=== PATIENT | female | born 2000 | race Caucasian/White ===

== ENCOUNTER 2020-06-09 09:27 | Emergency (ER) | payer MEDICAID, SELFPAY ==
--- NOTE | 2020-06-09 09:33 | US_ITS ---
WS: [id number] OB ultrasound, 06/09/2020 Clinical Data: vag bleeding/ Comparison: None. Findings: There is a single intrauterine in a variable lie. presentation. The placenta is Anterior and grade 0. There is a normal amount of amnionic fluid. The f etal heart rate is 144 beats per minute. No placenta previa or abruptio was seen Measurements of growth and development: BPD: 3.39 cm 16 weeks 3 days HC: 12.95 cm 16 weeks 4 days AC: 10.73 cm 16 weeks 4 days FL: 2.08 cm 16 weeks 1 day The estimated weight is 157 g or approximately 6 ounces The estimated gestational age is 16 weeks 3 days with an BELEM of approximately 11/21/2020. [place] [place] [facility] [place] [id number] Impression: 1. Single intrauterine in a variable lie.. 2. Estimated gestational age 16 weeks 3 days with an BELEM of 11/21/2020. 3. heart rate 144 beats per minute.
[2020-06-09 09:40] VITALS: BP 131/75; PULSE 97; RESP 16; TEMP 37.2; O2SAT 98; BMI 21.2
[2020-06-09 09:54] LABS: Basophils % 0.1 %; Eosinophils % 0.4 %; Hematocrit 39.3 % (37.0-47.0); Hemoglobin 13.2 g/dL (11.5-15.3); Lymphocytes # 1.5 10^3/uL (1.5-6.5); Lymphocytes % 16.9 %; Mean Corpuscular HGB Conc 33.6 g/dL (30.0-36.0); Mean Corpuscular Volume 92.3 fL (81-99); Mean Platelet Volume 9.1 fL (7.4-10.4); Monocytes # 0.4 10^3/uL (0.2-0.9); Monocytes % 4.2 %; Neutrophils # 6.69 10^3/uL (1.8-8.0); Neutrophils % 78.2 %; Nucleated Red Blood Cells % 0 %; Platelet Count 227 10^3/cmm (130-400); Red Blood Count 4.26 10^6/uL (4.1-5.3); Red Cell Distribution Width 12.7 % (12.1-15.1); White Blood Count 8.6 10^3/uL (4.5-13.0)
--- NOTE | 2020-06-09 09:55 | US_ITS ---
WS: [id number] Limited abdomen ultrasound, 06/09/2020 Clinical Data: RUQ and RLE abdominal pain due to fall Comparison: None. Findings: No free fluid is seen in any of the 4 quadrants of the abdomen. The spleen appears to be intact with no intrasplenic masses or capsular abnormalities. No liver laceration is noted. No pericardial fluid is seen. There are no pleural effusions. The abdom inal aorta is normal. Both kidneys show no lacerations. US/US abdomen lmt trauma [id number] Impression: Negative limited abdomen ultrasound.
--- NOTE | 2020-06-09 09:58 | XR_ITS ---
WS: [id number] Right rib detail, 2 views, 06/09/2020 Clinical Data: rib pain s/p fall Comparison: None. Findings: No rib fractures are seen. There is no pneumothorax or subcutaneous emphysema. The adjacent right jersey g is unremarkable. The soft tissues of the right chest are normal. XR/XR ribs RT 2V* [id number] Impression: Negative right rib detail.
--- NOTE | 2020-06-09 09:59 | ED_ITS ---
HPI - General: Chief complaint: Vaginal Bleeding Stated complaint: 16 wks , spotting, coughing blood Time Seen by Provider: 06/09/20 09:29 History of Present Illness: HPI Narrative: 19-year-old female patient presents to the emergency department status post fall. She reports was going to the bathroom when she stood up, got lightheaded and fell. She reports hit the side of her abdomen/lower chest on the commode. She reports became nauseated, vomited, experienced vaginal bleeding; she is 16 weeks . She reports blood through a mini pad. Vital signs are stable upon exam. Denies for nausea at this time. States was at work at [employer] when symptoms occurred. She reports did not hit her head, she did not experience loss of consciousness. MD Complaint: abdominal pain and vaginal bleeding Onset (ago): minute(s) (30) Pain Consistency: intermittent Location: pelvis, abdomen and flank Severity: mild Severity scale (1-10): 4 Quality: Cramping and Aching Radiation: pelvis, abdomen and flank (rt) Exacerbating factors: movement Vaginal bleeding: light Number of Weeks : 16 Associated symptoms: Reports abdominal pain, nausea and vomiting; Deny dysuria, headache(s) or vaginal bleeding Review of Systems General: Reports: 10 or more systems reviewed and unremarkable except in HPI and below Const: Denies: fever(s), chills or diaphoresis Eyes: Denies: blurry vision or eye redness ENMT: Denies: throat pain, dental pain or disequilibrium Card: Denies: chest pain, palpitations or irregular heart rhythm Resp: Denies: dyspnea, productive cough, non-productive cough or wheezing GI: Reports: abdominal pain, nausea, vomiting, hematemesis (x 1 per patient) and GI cramping; Denies: dysphagia or hematochezia : Reports: vaginal bleeding; Denies: difficulty voiding or dysuria Musc: Denies: back pain Skin/Breast: Denies: rash or pruritus Neuro: Denies: headache(s), weakness in extremities or behavioral changes Luis Fernando/Lymph: Denies: easy bruising Physical Exam Const: COMMON NORMALS: no acute distress, patient oriented x3, healthy appearing and alert GENERAL APPEARANCE: cooperative, comfortable and well hydrated HENMT: COMMON NORMALS: normocephalic, Normal external nose present and moist oral mucous membranes HEAD & SCALP: normocephalic NOSE: Normal external nose present Eye: COMMON NORMALS: Equal, round and reactive pupils present and EOMs intact bilaterally GENERAL EYE: appearance normal, both eyes and all related structures PUPIL: Yes Equal, round and reactive pupils present Neck/C-Spine: COMMON NORMALS: full ROM and no lymphadenopathy GENERAL: Yes normal visual inspection and Yes trachea midline CERVICAL SPINE: Yes cervical ROM normal, No Cervical spine tenderness, No Paracervical muscle tenderness and No Trapezius muscle tenderness Lymph: LYMPHATIC: no lymphadenopathy noted and no lymphedema noted Chest: COMMONS NORMALS: normal inspection of the chest and normal palpation of entire chest wall CHEST: Yes localized rib tenderness with anteroposterior compression (right lateral) Location: 8th rib, 9th rib and 10th rib Resp: COMMON NORMALS: normal respiratory effort and clear to auscultation bilaterally EFFORT & INSPECTION: Yes able to speak in complete sentences AUSCULTATION: clear to auscultation bilaterally Cardio: COMMON NORMALS: regular rhythm, S1 normal heart sound present, S2 normal heart sound present and Peripheral pulses 2+ throughout RHYTHM: regular rhythm HEART SOUNDS: S1 normal heart sound present and S2 normal heart sound present PERIPHERAL PULSES: Peripheral pulses 2+ throughout GI: COMMON NORMALS: Soft to palpation INSPECTION: Yes normal to inspection, No abdominal wall ecchymosis, No Abdominal wall edema, No abdominal distension and Yes other ( appearing) AUSCULTATION: Yes normoactive bowel sounds PALPATION: Yes Soft to palpation, Yes Tenderness to palpation present (GI) Details: RLQ and RUQ, No Guarding due to palpation present (GI), No Hepatosplenomegaly present, No Pulsatile mass present and No Abdominal wall crepitus present RECTAL EXAM: deferred : COMMON NORMALS: Yes no CVA tenderness and Yes normal bimanual exam BLADDER/KIDNEY EXAM: Yes no CVA tenderness EXTERNAL FEMALE EXAM: Yes normal appearance of the urethra, No Inguinal lymphadenopathy, No lesion and No laceration SPECULUM EXAM - VAGINA: No foreign body, No laceration, No vaginal bleeding, No tissue present in vagina, No swelling and No tenderness SPECULUM EXAM - CERVIX: Yes Cervical os closed, No Tissue present in the cervical os, No Cervical bleeding, Yes Abnormal cervical discharge present white and malodorous, No Cervical lesion present, No Cervical laceration present and Yes Cervical tenderness present BIMANUAL EXAM - VAGINA & UTERUS: Yes normal bimanual exam, Yes Cervical tenderness present, Yes Uterine tenderness and Yes enlarged () BIMANUAL EXAM - ADNEXA, OTHER: Yes mobile and Yes normal OB/EXTERNAL & SPECULUM: other (no bleeding); no foreign bodies, no tissue noted in vagina and vaginal bleeding UTERUS PALPATION: Yes Uterus tender Back/Pelvis: COMMON NORMALS: no CVA tenderness and thoracic and lumbar spine normal to inspection Extremity: COMMON NORMALS: normal to inspection and capillary refill normal Neuro: COMMON NORMALS: patient oriented x3 and no focal motor deficits SEN SORIUM/ORIENTATION: Yes alert Psych: COMMON NORMALS: mental status grossly normal, Normal thought process present and cooperative ACTIVITY/MOTOR BEHAVIOR: Yes appropriate eye contact THOUGHT PROCESS: Normal thought process present Skin: COMMON NORMALS: no rashes or lesions noted and turgor normal GENERAL SKIN EXAM: no rashes or lesions noted and turgor normal Procedures Perimortem Number of Weeks : 16 Course ED course: 19-year-old female patient presents to the emergency department with onset of lightheadedness after using the bathroom, she fell sustained injury to the right side of her abdomen when she hit her side on the commode. She reports experienced vomiting, question blood, fast abdominal exam completed in the ED along with OB/pelvic exam, ultrasound did not reveal abnormalities, she is 16 weeks 3 days, vaginal bleeding not appreciated on pelvic exam. Urine was normal, and was not anemic upon exam, she is requesting off work for couple of days due to near syncope episodes that occurred. She agrees to follow-up with her primary care provider next week, agrees to return to the emergency department if she experiences vaginal bleeding, worsening abdominal pain, or other concerning symptoms. She was able to tolerate oral fluids here in the ED, did not experience nausea vomiting. Chest x-ray completed due to right lower rib tenderness, no fracture identified. Vital Signs: Vital signs: Vital Signs Temperature 98.9 F 06/09/20 09:40 Pulse Rate 72 06/09/20 11:22 Respiratory Rate 18 06/09/20 11:22 Blood Pressure 106/68 06/09/20 11:22 Pulse Oximetry 97 06/09/20 11:22 MDM - OB/Uterine Contractions Lab Data: Labs: Lab Results 06/09/20 06/09/20 06/09/20 Range/Units 09:44 09:44 09:44 WBC 8.6 (4.5-13.0) 10^3/ uL RBC 4.26 (4.1-5.3) 10^6/u L Hgb 13.2 (11.5-15.3) g/dL Hct 39.3 (37.0-47.0) % MCV 92.3 (81-99) fL MCH 31.0 (28.0-34.0) pg MCHC 33.6 (30.0-36.0) g/dL RDW 12.7 (12.1-15.1) % Plt Count 227 (130-400) 10^3/c mm MPV 9.1 (7.4-10.4) fL Neut % (Auto) 78.2 % Lymph % (Auto) 16.9 % [place] % (Auto) 4.2 % Eos % (Auto) 0.4 % Baso % (Auto) 0.1 % Neut # (Auto) 6.69 (1.8-8.0) 10^3/u L Lymph # (Auto) 1.5 (1.5-6.5) 10^3/u L [place] # (Auto) 0.4 (0.2-0.9) 10^3/u L Eos # (Auto) 0.0 (0.0-0.8) 10^3/u L Baso # (Auto) 0.0 (0.0-0.1) 10^3/u L Nucleated RBC % (a uto) 0 % Nucleated RBCs # 0.0 /100WBC Sodium 136 (136-145) mmol/L Potassium 3.8 (3.5-5.1) mmol/L Chloride 103 (98-107) mmol/L Carbon Dioxide 22 (22-29) mmol/L Anion Gap 14.8 (5-19) BUN 6 (6-20) mg/dL Creatinine 0.6 (0.5-0.9) mg/dL GFR Calculation 128.8 (90-130) mL/min Glucose 122 H (65-115) mg/dL Calculated Osmolal ity 281 L (285-295) mOsm/k g Calcium 9.5 (8.5-10.5) mg/dL Total Bilirubin 0.3 (0.15-1.2) mg/dL AST 13 (0-32) U/L ALT 8 (0-33) U/L Alkaline Phosphata se 55 (35-105) IU/L Total Protein 7.2 (6.6-8.7) g/dL Albumin 4.4 (3.5-5.2) g/dL Globulin 2.8 (1.3-4.6) g/dL [place] , [place] [address].00 mIU/mL Urine Color (Yellow) Urine Appearance (CLEAR) Urine pH (5-7) Ur Specific Gravit y (1.005-1.030) Urine Protein (Negative) Urine Glucose (UA) (Normal) Urine Ketones (Negative) Urine Blood (Negative) Urine Nitrate (Negative) Urine Bilirubin (Negative) Urine Urobilinogen (Negative) mg/dL Ur Leukocyte Jadyn ase (Negative) C.trachomatis RNA (TMA) Chlamydia/GC Comme nt N.gonorrhoeae RNA (TMA) Blood Type A Positive Rho(D) Type Positive 06/09/20 06/09/20 Range/Units 10:00 10:00 WBC (4.5-13.0) 10^3/ uL RBC (4.1-5.3) 10^6/u L Hgb (11.5-15.3) g/dL Hct (37.0-47.0) % MCV (81-99) fL MCH (28.0-34.0) pg MCHC (30.0-36.0) g/dL RDW (12.1-15.1) % Plt Count (130-400) 10^3/c mm MPV (7.4-10.4) fL Neut % (Auto) % Lymph % (Auto) % [place] % (Auto) % Eos % (Auto) % Baso % (Auto) % Neut # (Auto) (1.8-8.0) 10^3/u L Lymph # (Auto) (1.5-6.5) 10^3/u L [place] # (Auto) (0.2-0.9) 10^3/u L Eos # (Auto) (0.0-0.8) 10^3/u L Baso # (Auto) (0.0-0.1) 10^3/u L Nucleated RBC % (a uto) % Nucleated RBCs # /100WBC Sodium (136-145) mmol/L Potassium (3.5-5.1) mmol/L Chloride (98-107) mmol/L Carbon Dioxide (22-29) mmol/L Anion Gap (5-19) BUN (6-20) mg/dL Creatinine (0.5-0.9) mg/dL GFR Calculation (90-130) mL/min Glucose (65-115) mg/dL Calculated Osmolal ity (285-295) mOsm/k g Calcium (8.5-10.5) mg/dL Total Bilirubin (0.15-1.2) mg/dL AST (0-32) U/L ALT (0-33) U/L Alkaline Phosphata se (35-105) IU/L Total Protein (6.6-8.7) g/dL Albumin (3.5-5.2) g/dL Globulin (1.3-4.6) g/dL Ser , Brittaney i-Qnt mIU/mL Urine Color Yellow (Yellow) Urine Appearance Clear (CLEAR) Urine pH 7 (5-7) Ur Specific Gravit y 1.005 (1.005-1.030) Urine Protein Neg (Negative) Urine Glucose (UA) Norm (Normal) Urine Ketones Negative (Negative) Urine Blood Neg (Negative) Urine Nitrate Negative (Negative) Urine Bilirubin Neg (Negative) Urine Urobilinogen Neg (Negative) mg/dL Ur Leukocyte Jadyn ase Negative (Negative) C.trachomatis RNA (TMA) Cancelled Chlamydia/GC Comme nt Cancelled N.gonorrhoeae RNA (TMA) Cancelled Blood Type Rho(D) Type Imaging Data^: US: Radiologist's impression: [address] [address] Ultrasound Report Signed Patient: Liset Fatima Unit #: [id number] : 2000 Age/Sex: 19 / F ADM Date: 06/09/20 Loc: ER Room/Bed: Attending Dr: Ordering Provider/Ordering MD: Karen Carey Date of Service: 06/09/20 Procedure(s): US abdomen lmt trauma [id number] Accession Number(s): [id number] Report Number: [id number] WS: [id number] Limited abdomen ultrasound, 06/09/2020 Clinical Data: RUQ and RLE abdominal pain due to fall Comparison: None. Findings: No free fluid is seen in any of the 4 quadrants of the abdomen. The spleen appears to be intact with no intrasplenic masses or capsular abnormalities. No liver laceration is noted. No pericardial fluid is seen. There are no pleural effusions. The abdominal aorta is normal. Both kidneys show no lacerations. US/US abdomen lmt trauma [id number] Impression: Negative limited abdomen ultrasound. Dictated By: Stella Costello MD Signed By: Stella Costello MD Signed Date/Time: 06/09/20 1010 DD/ 1007 Discharge Plan Discharge Patient Disposition: Home Clinical Impression: Fall against object, Vaginal bleeding affecting early Abdominal pain Qualifiers: Abdominal location: right upper quadrant Qualified Code(s): R10.11 - Right upper quadrant pain Condition: Stable Prescriptions: No Action No Known Home Medications RF: 0 Discharge Orders: Discharge Order (Routine); Ordered 06/09/20 Ordered By: Karen Carey Referrals: Victorino Lawler MD [Primary Care Provider] - Discharge Diet: Usual diet Discharge Activity: Limit activity as instructed Patient Instructions: Threatened Miscarriage (ED), (ED), Contusion in Adults (ED), Abdominal Pain (ED) Activity Restrictions/Additional Instructions: Return to the emergency department if you develop vaginal bleeding, abdominal pain that worsens, difficulty breathing, fever or chills Follow-up with Dr. Ackerman next week for return to work Take it easy this weekend, no heavy lifting greater than 10 pounds until follow- up Push fluids, drink lots and lots of fluids. Stand Alone Forms: Work/School Release Coding Level of Care Code ED Data Security Administrator for Chg Fwd Exam Comprehensive
[2020-06-09 10:31] LABS: Alanine Aminotransferase 8 U/L (0-33); Albumin Level 4.4 g/dL (3.5-5.2); Alkaline Phosphatase 55 IU/L (35-105); Anion Gap 14.8 (5-19); Aspartate Amino Transferase 13 U/L (0-32); Blood Urea Nitrogen 6 mg/dL (6-20); Calcium 9.5 mg/dL (8.5-10.5); Carbon Dioxide 22 mmol/L (22-29); Chloride 103 mmol/L (98-107); Globulin 2.8 g/dL (1.3-4.6); Glomerular Filtration Rate 128.8 mL/min (90-130); Glucose 122 mg/dL (65-115); Osmolality Calculated 281 mOsm/kg (285-295); Potassium 3.8 mmol/L (3.5-5.1); Sodium 136 mmol/L (136-145); Total Bilirubin 0.3 mg/dL (0.15-1.2); Total Protein 7.2 g/dL (6.6-8.7)
[2020-06-09 10:43] LABS: Add Urine Microscopic? NO
--- NOTE | 2020-06-09 10:43 | PC.NURSE ---
Patient to Xray
[2020-06-09 10:51] LABS: Bilirubin Urine Neg (Negative); Blood Urine Neg (Negative); Glucose Urine UA Norm (Normal); Ketones Urine Negative (Negative); Leukocyte Esterase Urine Negative (Negative); Nitrate Urine Negative (Negative); Protein Urine Neg (Negative); Specific Gravity, Urine 1.005 (1.005-1.030); Urine Appearance Clear (CLEAR); Urine Color Yellow (Yellow); Urobilinogen Urine Neg (Negative); pH Urine 7 (5-7)
[2020-06-09 11:22] VITALS: BP 106/68; PULSE 72; RESP 18; O2SAT 97
[2020-06-09] MEDS: sodium chloride 0.9% 500 ML 999 ML IV (11:25)
[2020-06-09 11:57] VITALS: BP 109/54; BP 113/66; BP 120/73; PULSE 105; PULSE 77; PULSE 88
[2020-06-09 12:33] VITALS: BP 106/68; PULSE 82; RESP 18; O2SAT 99
== END 2020-06-09 12:33 | disposition home or self-care (01) ==
PROVIDERS: Emergency Provider Nurse Practitioner Family; PCP Family Medicine
DX: O26.892 Other specified pregnancy related conditions, second trimester (principal); O46.92 Antepartum hemorrhage, unspecified, second trimester; R10.11 Right upper quadrant pain; Z3A.16 16 weeks gestation of pregnancy; W18.39XA Other fall on same level, initial encounter
CPT/HCPCS: 12345; 36415; 71100; 76705; 76815; 80053; 81003; 84702; 85025; 86900; 87070; 87205; 87210; 87491; 87591; 99284; E0352; J7040

== ENCOUNTER 2020-11-07 20:57 | Outpatient (CLI) | payer MEDICAID, SELFPAY ==
[2020-11-07 19:51] VITALS: BMI 28.3
[2020-11-07 21:25] VITALS: BP 126/71; PULSE 82
[2020-11-07 22:57] VITALS: BP 127/72; PULSE 68
== END 2020-11-07 23:10 | disposition home or self-care (01) ==
LOC: OPOB 20:57 → OBGYN 20:59
PROVIDERS: PCP Family Medicine; Visit Provider Family Medicine
DX: O26.899 Other specified pregnancy related conditions, unspecified trimester (principal); Z3A.00 Weeks of gestation of pregnancy not specified; R10.9 Unspecified abdominal pain
CPT/HCPCS: 99211

== ENCOUNTER 2020-11-12 20:57 | Outpatient (CLI) | payer MEDICAID, SELFPAY ==
[2020-11-12 21:06] VITALS: BP 145/68; PULSE 86
[2020-11-12 21:09] VITALS: BMI 28.3
[2020-11-12 23:08] VITALS: BP 129/75; PULSE 73
== END 2020-11-12 23:20 | disposition home or self-care (01) ==
LOC: OPOB 20:58 → OBGYN 20:58
PROVIDERS: PCP Family Medicine; Visit Provider Family Medicine
DX: O26.899 Other specified pregnancy related conditions, unspecified trimester (principal); Z3A.00 Weeks of gestation of pregnancy not specified; R10.9 Unspecified abdominal pain
CPT/HCPCS: 59025; 99211

== ENCOUNTER 2020-11-15 12:20 | Inpatient (IN) | payer MEDICAID, SELFPAY ==
[2020-11-15] VITALS (68 sets, daily range): BP systolic 108–178; BP diastolic 58–116; PULSE 75–187; RESP 18; TEMP 36.6–39.5; O2SAT 97–99; BMI 28.3
[2020-11-15] MEDS: lactated ringers 1,000 ML 999 ML IV (12:59)
--- NOTE | 2020-11-15 13:10 | P.ANESASSM_ITS ---
Pre-Anesthetic Assessment Pre-Anesthetic Assessment: Height/Weight: Height 1.6 m Weight 72.575 kg Temp Pulse Resp BP Pulse Ox 97.9 F 80 18 143/71 98 11/15/20 12:23 11/15/20 13:36 11/15/20 12:47 11/15/20 13:36 11/15/20 13:36 Preop Diagnosis: IUP Proposed Procedure: labor epidural Was Beta Noemi taken within 24 hours: N/A Was Clonidine taken within 24 hours: N/A Social: Social History: No alcohol and No tobacco Exam: Pre-Anes Outpt Exam: alert, oriented x 3, clear to auscultation bilaterally and regular rate & rhythm Airway: Submandibular: WNL Cervical ROM: WNL MP: 1 History/ROS: No significant history except as noted Pulmonary: Pulmonary: None reported CV/HEM: CV/HEM: None reported : : None reported Hepatic: Hepatic: None reported GI: GI: None reported Metabolic: Metabolic: None reported Musc/skel: Musc/skel: None reported Neuropsych: Neuropsych: None reported Anesthetic Plan: ASA status: 1 Anesthesia: Anesthesia Evaluation Risk of > 500 ml blood loss (7ml/kg in children): No Meds/Allergies Current Medications: Current Medications Generic Name Dose Route Start Last Admin Trade Name Freq PRN Reason Stop Dose Admin Ropivacaine 200 mg in 100 mls @ 13 mls/hr 11/15/20 13:00 11/15/20 13:36 Naropin Premix EPIDURAL 13 mls/hr .[id number] GABRIEL Administration Lactated Ringer's 1,000 mls @ 999 m ls/hr 11/15/20 12:48 11/15/20 12:59 Lactated Ringers IV 999 mls/hr .Q1H1M PRN Administration See label comment s Data Anesthesia CBC & Chem 7: 11/15/20 12:45 Other Labs: Laboratory Results - last 48 hr 11/15/20 12:45 WBC 14.1 H RBC 3.71 L Hgb 10.9 L Hct 33.5 L MCV 90.3 MCH 29.4 MCHC 32.5 RDW 11.9 L Plt Count 208 MPV 10.4 Neut % (Auto) 81.4 Lymph % (Auto) 11.3 [place] % (Auto) 6.6 Eos % (Auto) 0.1 Baso % (Auto) 0.2 Neut # (Auto) 11.49 H Lymph # (Auto) 1.6 [place] # (Auto) 0.9 Eos # (Auto) 0.0 Baso # (Auto) 0.0 Nucleated RBC % (auto) 0 Nucleated RBCs # 0.0 Cardiac Studies: No Data to Display
[2020-11-15 13:23] LABS: Basophils % 0.2 %; Eosinophils % 0.1 %; Hematocrit 33.5 % (37.0-47.0); Hemoglobin 10.9 g/dL (11.5-15.3); Lymphocytes # 1.6 10^3/uL (1.5-6.5); Lymphocytes % 11.3 %; Mean Corpuscular HGB Conc 32.5 g/dL (30.0-36.0); Mean Corpuscular Hemoglobin 29.4 pg (28.0-34.0); Mean Corpuscular Volume 90.3 fL (81-99); Mean Platelet Volume 10.4 fL (7.4-10.4); Monocytes # 0.9 10^3/uL (0.2-0.9); Monocytes % 6.6 %; Neutrophils # 11.49 10^3/uL (1.8-8.0); Neutrophils % 81.4 %; Nucleated Red Blood Cells % 0 %; Platelet Count 208 10^3/cmm (130-400); Red Blood Count 3.71 10^6/uL (4.1-5.3); Red Cell Distribution Width 11.9 % (12.1-15.1); White Blood Count 14.1 10^3/uL (4.5-13.0)
--- NOTE | 2020-11-15 13:40 | ANES.PROC ---
Anesthesia Procedures Procedure/Date: 11/15/20 Epidural: Time Out Performed: Yes Consents Signed: Procedure Consent Consent: requested by attending/covering physician Lumbar Level: L4-L5 Epidural position: sitting Epidural procedure: sterile prep of area, 1% lidocaine to numb the area, 18 g needle, negative for paresthesia passed, neg for paresthesia, test dose given, 1.5% xylocaine 1:200k epi (4ml), placed PCEA, no systemic response, sterile dressing applied, L.U.D. no apparent complications and 0.2% Ropiavacaine @ mls/hr (13)
[2020-11-15] MEDS: dextrose 5%-lactated ringers 1,000 ML 125 ML IV (14:16)
[2020-11-15 15:29] LABS: Nitrazine Paper, PH Positive
[2020-11-15] MEDS: ondansetron 2 mg/ML SDV 2 mL 4 MG IVP (17:18)
[2020-11-15] MEDS: oxytocin 30 UNIT/500 ML BAG 600 UNIT IV (19:40)
--- NOTE | 2020-11-15 20:24 | P.PCNOB_ITS ---
Delivery Note: Date of delivery: November 15, 2020 Op report anesthesia: Epidural Delivering Physician: Yuriy Ackerman Estimated blood loss (mL): 150 Pre-Delivery Course: The patient is a 38-year-old 1 para 0 at 38 weeks estimated gestational age who presented to the hospital after having spontaneous rupture membranes just prior to arrival. She was an active labor. An epidural was placed. She progressed to complete without difficulty. Delivery: DELIVERY: The patient progressed to complete without difficulty. She delivered a male with a weight of 8 pounds 1 ounce with Apgars of 8, 9. The baby was delivered from the KEITH position then placed on the mother's abdomen. The cord was then clamped and cut. There was a nuchal cord x1. The baby was delivered through the cord.. There was no meconium. The placenta and 3 vessel cord were delivered intact shortly thereafter. The perineum and vaginal vault were carefully examined. Lacerations were noted on both the left and right anterior vaginal mucosa. On the right side, extended through the labia minora just inferior to the clitoris. It was repaired with 3-0 Vicryl with care not to include either the urethra or the clitoris. Both the mother and the baby were in stable condition. Post-Delivery Status: Good A&P Assessment and plan (1) 38 weeks gestation of : Anticipate routine care. She did have a fever towards the end of her labor process. She did have an epidural. She showed no other signs of infection. Status: Acute (2) Spontaneous vaginal delivery: Status: Acute Coding Level of Care Code Acute Manager Of Case Management for Chg Fwd Diagnoses 38 weeks gestation of Z3A.38 Spontaneous vaginal delivery O80
[2020-11-15] MEDS: ibuprofen 800 mg tablet PO (21:05)
[2020-11-15] MEDS: benzocaine-menthol 78 gm Canister 1 SPRAY TOPICAL (22:51)
[2020-11-15] MEDS: HYDROcodone-acetaminophen 5-325 mg Tablet PO (23:07)
[2020-11-16] VITALS (10 sets, daily range): BP systolic 109–120; BP diastolic 63–73; PULSE 60–76; RESP 16–18; TEMP 35.9–37.1; O2SAT 96–97
--- NOTE | 2020-11-16 01:05 | PC.NURSE ---
pt on bedpan at this time. pt output 700. still cannot control right leg.
--- NOTE | 2020-11-16 06:26 | PM.MISC ---
Miscellaneous Note Purpose of Documentation: Epidural Bolus on 11/15 Note: This is a late note--epidural was bolused with 100mcg fent and 5mls 2% lido PF.
--- NOTE | 2020-11-16 07:22 | PM.OBGYDC ---
Discharge Providers SENIOR COLDFUSION DEVELOPER Date of Admission: 11/15/20 12:20 Date of Discharge: 11/16/20 Attending Provider at Admission: Yuriy Ackerman MD Attending Provider at Discharge: Yuriy Ackerman MD Primary Care Provider: Victorino Lawler MD Diagnoses at Discharge Discharge Diagnosis (1) 38 weeks gestation of : Status: Acute (2) Spontaneous vaginal delivery: Status: Acute Reason for Visit Reason for Visit: Contractions Hospital Course Hospital Course The patient presented to the hospital with spontaneous rupture of membranes and in active labor. She progressed to complete and had an unremarkable delivery of a healthy-appearing male . Her course was only remarkable for having residual numbness and weakness of her legs after her epidural. That is gradually improving. Otherwise, she appeared to be doing very well. She elected to bottlefeed. Her bleeding was within normal limits. Her pain was well controlled. There is no other concerns. Information Peripartum Data: Infant Delivery Method: Vaginal Physical Exam Narrative: EXAM NARRATIVE: The patient is alert. She appears comfortable. Her heart has a regular rate and rhythm with no murmurs appreciated. Lungs are clear to auscultation bilaterally. Her fundus is firm and below the umbilicus. Urinary Catheter Management^: Coles: Cath Placed During This Visit: yes, but has since been removed by the nurse Reason for Continuing Indwelling Catheter: Decision to DC Catheter Urinary Catheter Date of Insertion: 11/15/20 Urinary Catheter Time of Insertion: 14:10 Date Urinary Catheter Removed: 11/15/20 Time Urinary Catheter Discontinued: 17:50 Discharge Data Data Completed and Pending: Pending at discharge Category Date Time Status Hemagram Timed Lab 11/16/20 08:21 Uncollected Labs from last 24 hours 11/15/20 12:45 WBC 14.1 H RBC 3.71 L Hgb 10.9 L Hct 33.5 L MCV 90.3 MCH 29.4 MCHC 32.5 RDW 11.9 L Plt Count 208 MPV 10.4 Neut % (Auto) 81.4 Lymph % (Auto) 11.3 [place] % (Auto) 6.6 Eos % (Auto) 0.1 Baso % (Auto) 0.2 Neut # (Auto) 11.49 H Lymph # (Auto) 1.6 [place] # (Auto) 0.9 Eos # (Auto) 0.0 Baso # (Auto) 0.0 Nucleated RBC % (a uto) 0 Nucleated RBCs # 0.0 Vitals: Last Vital Signs Temp 98.3 F 11/16/20 05:46 Pulse 60 11/16/20 05:46 Resp 16 11/16/20 05:46 BP 109/67 11/16/20 05:46 Pulse Ox 96 11/16/20 05:46 Discharge Plan Discharge Patient Disposition: Home Condition: Stable Prescriptions: New ibuprofen 800 mg Tablet 800 mg PO TID Qty: 45 RF: 0 Continued [id number] 1 mg Tablet See Rx Instructions .ROUTE .COMPLEX RF: 0 Discontinued Unisom (diphenhydramine) 50 mg/30 mL Liquid RF: 0 Discharge Orders: Discharge Order (Routine); Ordered 11/16/20 Ordered By: Yuriy Ackerman Referrals: Yuriy Ackerman MD [Physician] - 6 Weeks Discharge Diet: Usual diet Discharge Activity: Limit activity as instructed Discharge Attestations SENIOR COLDFUSION DEVELOPER Time Spent in Discharge Care*: less than 30 min Coding Level of Care Code Acute Marble Polisher for Chg Fwd Diagnoses 38 weeks gestation of Z3A.38 Spontaneous vaginal delivery O80
[2020-11-16] MEDS: prenatal vitamin Capsule 1 CAP PO (08:50)
[2020-11-16] MEDS: docusate sodium 100 mg Capsule PO ×2 (08:50→17:56)
[2020-11-16] MEDS: ibuprofen 800 mg tablet PO ×3 (08:50→20:41)
[2020-11-16 09:18] LABS: Hematocrit 31.1 % (37.0-47.0); Mean Corpuscular HGB Conc 32.2 g/dL (30.0-36.0); Mean Corpuscular Hemoglobin 29.6 pg (28.0-34.0); Mean Platelet Volume 10.3 fL (7.4-10.4); Platelet Count 177 10^3/cmm (130-400); Red Blood Count 3.38 10^6/uL (4.1-5.3); Red Cell Distribution Width 12.1 % (12.1-15.1); White Blood Count 17.2 10^3/uL (4.5-13.0)
--- NOTE | 2020-11-16 12:35 | PC.NURSE ---
The patient is still unable to lift right leg off the bed, she is able to bend her knee and pull her leg back towards her but can not life her leg off the bed. She has had some difficulty with being able to ambulate to the bathroom, her knee still gives way when she ambulates to the bathroom. Dr Whelan with anesthesia was called at this time and he states that she likely has epidural drugs still in her system and that she may need another day to have full function back of her leg.
[2020-11-16] MEDS: HYDROcodone-acetaminophen 5-325 mg Tablet PO (20:40)
== END 2020-11-16 20:55 | disposition home or self-care (01) | DRG 806 ==
LOC: OBGYN 12:20 → OPOB 12:40 → OBGYN 12:40
PROVIDERS: Admitting Provider Family Medicine; PCP Family Medicine; Visit Provider Family Medicine
DX: O69.81X0 Labor and delivery complicated by cord around neck, without compression, not applicable or unspecified (principal); O71.4 Obstetric high vaginal laceration alone; Z37.0 Single live birth; O71.89 Other specified obstetric trauma; Z3A.38 38 weeks gestation of pregnancy
CPT/HCPCS: 12345; 51702; 59409; 83986; 85025; 85027; 99211; J2405; J2795; J3010

== ENCOUNTER → 2021-01-01 10:58 | Outpatient (BNVA) | payer MEDICAID, SELFPAY | PROVIDERS: PCP Family Medicine; Referring Provider Family Medicine; Visit Provider Specialist | DX: R20.0 Anesthesia of skin (principal); R20.2 Paresthesia of skin; M79.661 Pain in right lower leg; M79.651 Pain in right thigh | CPT/HCPCS: 95907 ==